=== PATIENT | female | born 1970 | race Caucasian/White ===

== ENCOUNTER → 2020-04-02 14:42 | Outpatient (BNVA) | payer BC, SELFPAY | PROVIDERS: Family Provider Nurse Practitioner; Visit Provider Nurse Practitioner | DX: E03.9 Hypothyroidism, unspecified (principal); E66.01 Morbid (severe) obesity due to excess calories | CPT/HCPCS: 80053; 84443 ==

== ENCOUNTER → 2020-04-16 14:12 | Outpatient (BNVA) | payer BC, SELFPAY | PROVIDERS: Family Provider Nurse Practitioner; Visit Provider Nurse Practitioner | DX: Z11.59 Encounter for screening for other viral diseases (principal); E03.9 Hypothyroidism, unspecified; R74.8 Abnormal levels of other serum enzymes | CPT/HCPCS: 86705; 86706; 86709; 86803; 87340 ==

== ENCOUNTER → 2020-07-15 13:27 | Outpatient (BNVA) | payer BC, SELFPAY | PROVIDERS: Family Provider Nurse Practitioner; Visit Provider Nurse Practitioner Family | DX: Z20.828 Contact with and (suspected) exposure to other viral communicable diseases (principal) | CPT/HCPCS: 87635 ==

== ENCOUNTER 2020-08-06 09:00 | Outpatient (CLI) | payer BC, SELFPAY ==
--- NOTE | 2020-08-06 09:08 | US_ITS ---
WS: [id number] ABDOMINAL ULTRASOUND LIMITED REASON FOR VISIT: elevated liver enzymes TECHNIQUE: Grayscale and Doppler ultrasound examination of the abdomen. FINDINGS: Pancreas: Not visualized due to overlying bowel gas. Abdominal aorta and IVC: Not visualized due to overlying bowel gas. Liver: Liver measures 14.5 cm in length. Echogenic parenchyma suggests fatty infiltration. Gallbladder: Gallbladder was unremarkable with no wall thickening or calculi. Right kidney: Right kidney measures 10.6 cm x 4.3 cm x 4.5 cm. Renal cortex 1 cm. No mass, hydronephr osis or calculus. No free fluid. US/US liver [id number] IMPRESSION: Limited examination. Fatty infiltration of the liver. Gallbladder unremarkable.
--- NOTE | 2020-08-06 09:56 | MM_ITS ---
WS: [id number] Bilateral screening digital mammogram, 08/06/2020 Clinical Data: SCREENING Comparison: 06/13/2017, 05/23/2017, 07/21/2015, 07/03/2015, 05/29/2009, 05/20/2009. Findings: The breast parenchymal pattern shows heterogeneous density. No spiculated masses or clustered calcifi cations are seen. There are no secondary signs of carcinoma. There are decorative items on both areol a. MM/[place] [id number] Impression: 1. Negative bilateral mammogram unchanged. 2. Recommend annual screening mammograms. BIRADS: 1-Negative FOLLOW UP: 1 Year Follow-up The CAD tool drawing checker was used.
== END 2020-08-06 09:01 | disposition home or self-care (01) ==
PROVIDERS: PCP Nurse Practitioner; Visit Provider Nurse Practitioner
DX: Z12.31 Encounter for screening mammogram for malignant neoplasm of breast (principal); R74.8 Abnormal levels of other serum enzymes; K76.0 Fatty (change of) liver, not elsewhere classified
CPT/HCPCS: 76705; 77067

== ENCOUNTER 2020-08-20 15:33 | Outpatient (CLI) | payer BC, SELFPAY ==
--- NOTE | 2020-08-20 15:30 | CTR_ITS ---
PROCEDURE INFORMATION: Exam: CT Abdomen And Pelvis With Contrast Exam date and time: 08/20/2020 3:43 PM Age: 50 years old Clinical indication: Abdominal pain; Localized; Left lower quadrant (llq); Additional info: R10.32 - left lower quadrant pain TECHNIQUE: Imaging protocol: Computed tomography of the abdomen and pelvis with intravenous contrast. Radiation optimization: All CT scans at this facility use at least one of these dose optimization techniques: automated exposure control; mA and/or kV adjustment per patient size (includes targeted exams where dose is matched to clinical indication); or iterative reconstruction. Contrast material: OMNI 300; Contrast volume: 95 ml; Contrast route: INTRAVENOUS (IV); COMPARISON: US pelvic with transvaginal 05/23/2017 9:30 AM RADIATION DOSE METRICS: Total DLP (mGy-cm): 1147.97 FINDINGS: Lungs: There is trace ground-glass opacity in the subpleural lung bases compatible with atelectasis or minimal pneumonitis. Mediastinal space: A small hiatal hernia is present. Liver: There is a 1.6 cm cyst in the left lobe of the liver. The remaining liver is homogeneous in density with mild fatty infiltration. Gallbladder and bile ducts: Normal. No calcified stones. No ductal dilation. Pancreas: Normal. No ductal dilation. Spleen: Normal. No splenomegaly. Adrenal glands: Normal. No mass. Kidneys and ureters: There is no evidence of hydronephrosis. There is no evidence of renal calcifications. The kidneys are normal. Stomach and bowel: There is no evidence of intestinal perforation or obstruction. There is no evidence of colitis/diverticulitis. There is mildly excessive colonic stool content. Appendix: A normal appendix is identified. Intraperitoneal space: Unremarkable. No free air. No significant fluid collection. Vasculature: Unremarkable.No abdominal aortic aneurysm. Lymph nodes: Unremarkable.No enlarged lymph nodes. Urinary bladder: There is nonspecific bladder wall thickening. This may be related to incomplete distention. Reproductive: An intrauterine device is present. The uterus, ovaries and adnexa are unremarkable in appearance. Bones/joints: Unremarkable. No acute fracture. Soft tissues: Unremarkable. CT/CT abdomen pelvis w con* [id number] IMPRESSION: No acute abnormality. No bowel thickening or inflammatory changes. No hydronephrosis or obstructing calculi. Radiation Dose CTDIVOL = (mGy): DLP = 1147.97 (mGy-cm)
[2020-08-20] MEDS: iohexol 300 mg/mL 100 mL Btl IV (16:00)
== END 2020-08-20 15:34 | disposition home or self-care (01) ==
LOC: RAD 15:39
PROVIDERS: PCP Nurse Practitioner; Visit Provider Nurse Practitioner
DX: R10.32 Left lower quadrant pain (principal); E03.9 Hypothyroidism, unspecified
CPT/HCPCS: 74177; 80053; 81000; 84443; 85025

== ENCOUNTER → 2020-11-02 11:47 | Outpatient (BNVA) | payer BC, SELFPAY | PROVIDERS: PCP Nurse Practitioner; Visit Provider Nurse Practitioner Family | DX: Z20.828 Contact with and (suspected) exposure to other viral communicable diseases (principal); U07.1 COVID-19 | CPT/HCPCS: 87635 ==